=== PATIENT | female | born 1980 | race Asian ===

== ENCOUNTER 2023-07-30 01:40 | Emergency (ER) | payer MEDICAID ==
[2023-07-30] MEDS ORDERED: CETI10TA6 MT (02:37)
[2023-07-30] MEDS ORDERED: TUSSL MT (02:37)
[2023-07-30] MEDS ORDERED: P20 MT (02:37)
[2023-07-30] MEDS ORDERED: FAMOTIDINE 20MG TABLET PO ONE (02:45)
[2023-07-30] MEDS ORDERED: PREDNISONE 20MG TABLET PO ONE (02:45)
[2023-07-30] MEDS ORDERED: DIPHENHYDRAMINE 50MG CAPSULE PO ONE (02:45)
[2023-07-30 02:58] VITALS: O2SAT 96
[2023-07-30] MEDS ORDERED: DIPHENHYDRAMINE 25MG CAPSULE PO NR (03:00)
[2023-07-30 03:11] VITALS: BP 130/70; PULSE 85; RESP 16; TEMP 97.5
== END 2023-07-30 03:13 | disposition home or self-care (01) ==
LOC: ER 01:40
DX: J06.9 Acute upper respiratory infection, unspecified (principal); T78.40XA Allergy, unspecified, initial encounter; Z98.890 Other specified postprocedural states; X58.XXXA Exposure to other specified factors, initial encounter
CPT/HCPCS: 99284; 81025; Q0163; J7512